=== PATIENT | female | born 1990 | race African-American/Black ===

== ENCOUNTER 2020-05-29 20:00 | Emergency (ER) | payer OTHER, SELFPAY ==
--- NOTE | ~2020-05-29 | US_ITS ---
EXAMINATION: US OB <=14 wk fetus w TV DATE: 05/30/2020 07:14 INDICATION: Abdominal pain during first trimester of . TECHNIQUE: Real-time pelvic ultrasound utilizing both a transvaginal and transabdominal probe was pe rformed. The interpreting radiologist was not present for the study. COMPARISON: None. FINDINGS: The uterus measures 10.1 x 5.1 x 6.1 cm. There is an intrauterine gestational sac. A yolk sac is see n but no clearly definable pole yet apparent. The in sac diameter measures 6-7 mm, which correl ates with an estimated gestational age of 5 weeks and 2 days. The right ovary measures 3.6 x 3.2 x 2.8 cm. The left ovary measures 3.8 x 1.6 x 1.6 cm. Vascular sophy w on color Doppler and a few small anechoic follicles are seen at both ovaries. There is no free flui d in the pelvis. IMPRESSION: 1. Single intrauterine gestational sac with yolk sac but no clearly definable pole yet apparent . 2. Gestational age by ultrasound of 5 weeks 2 day(s) +/- 3 day(s) with ultrasound estimated date of delivery ([facility]) of 01/27/2021. Reviewed, dictated and finalized at location A. IMPRESSION: 1. Single intrauterine gestational sac with yolk sac but no clearly definable f etal pole yet apparent. 2. Gestational age by ultrasound of 5 weeks 2 day(s) +/- 3 day(s) with ultraso und estimated date of delivery ([facility]) of 01/27/2021.
[2020-05-29 20:05] VITALS: BP 118/69; PULSE 95; RESP 18; TEMP 36.6; O2SAT 100
[2020-05-29 20:22] LABS: Basophils Percent Auto 0.2 % (0.2-1.2); Eosinophils Absolute Auto 0.1 K/mm3 (0-0.3); Eosinophils Percent Auto 0.7 % (0-4.4); Hematocrit 41.8 % (37.0-47.0); Immature Granulocyte Absolute 0.02 K/mm3 (0.00-0.031); Immature Granulocyte Percent A 0.2 % (0-0.5); Lymphocytes Absolute Auto 1.99 K/mm3 (0.9-3.2); Lymphocytes Percent Auto 24.6 % (18.3-44.2); Mean Corpuscular HGB Conc 33.5 g/dl (32-36); Mean Corpuscular Hemoglobin 28.9 pg (26-34); Mean Corpuscular Volume 86.2 fl (80-100); Mean Platelet Volume 11.2 fl (7.4-10.4); Monocytes Absolute Auto 0.6 K/mm3 (0.1-0.6); Monocytes Percent Auto 7.8 % (2.6-8.5); Neutrophils Absolute Auto 5.4 K/mm3 (1.3-6.7); Neutrophils Percent Auto 66.5 % (45.5-73.1); Platelet Count Result 229 k/mm3 (150-375); Red Blood Count 4.85 M/mm3 (4.2-5.4); Red Cell Distribution Width 11.9 % (11.5-14.5); White Blood Count 8.1 K/mm3 (4.5-10.0)
[2020-05-29 20:28] LABS: Add Urine Microscopic? YES; Appearance Urine Cloudy (Clear); Bacteria Urine Trace /hpf; Bilirubin Urine Negative (Negative); Blood Urine Negative (Negative); Color Urine Yellow (Yellow); Glucose Urine UA Negative (Negative); Ketones Urine Negative (Negative); Leukocyte Esterase Ur Trace LEU/UL (Negative); Mucus Urine Rare /lpf; Nitrate Urine Negative (Negative); Protein Urine Negative (Negative); Specific Grav Ur 1.019 (1.001-1.035); Squamous Epithelial Cell Urine Many /hpf (Few); WBC Urine 0-3 /hpf
[2020-05-29 20:29] VITALS: BP 125/86; PULSE 85; RESP 18; O2SAT 100
--- NOTE | 2020-05-29 20:33 | ED.ABDPAIN ---
HPI - Abdominal Pain General Chief Complaint: Abdominal Pain Stated Complaint: L abd pain and ear ache Time Seen by Provider: 05/29/20 20:22 Source: patient Mode of arrival: ambulatory Limitations: no limitations History of Present Illness HPI narrative: This is a 29 year old female with history of endometriosis who presents for evaluation of left lower abdominal pain. This pain has been intermittent for 3 days. She has not tried any medication for pain. She denies associated nausea, vomiting, fever, chills, dysuria or hematuria. Her last menstrual cycle was 04/24/20 and her urine test is positive in ER today. She also reports odorous vaginal discharge. She is also complaining of left ear pain. MD elicited complaint: abdominal pain Related Data Allergies Allergy/AdvReac Type Severity Reaction Status Date / Time No Known Allergies Allergy Verified 08/15/12 20:58 Review of Systems Review of Systems: All systems reviewed & are unremarkable except as noted in HPI and below Constitutional: Constitutional: Denies chills and Denies fever(s) Cardiovascular: Cardiovascular: Denies chest pain Respiratory: Respiratory: Denies cough Gastrointestinal: Gastrointestinal: Reports abdominal pain, Denies constipation, Denies diarrhea, Denies nausea and Denies vomiting Genitourinary: Genitourinary: Denies abnormal vaginal bleeding, Denies hematuria and Reports vaginal discharge [facility] Past Medical History Medical History (Updated 05/30/20 @ 00:15 by Dayana Thurston MD) Patient denies medical problems Surgical History Surgical History (Updated 05/30/20 @ 00:07 by Dayana Thurston MD) History of laparoscopy Social History Social History (Updated 05/30/20 @ 00:07 by Dayana hTurston MD) Smoking status: Never smoker Gender identity (if verbalized by the patient): Female Exam Const: General: no acute distress and alert Orientation/consciousness: patient oriented x3 HENMT: Head: normocephalic and atraumatic Ears: external ears normal and TM's normal bilaterally General nose exam: Normal external nose present and Normal nares present Face and sinus: face symmetric Mouth: Yes Normal oral and palatal mucosa present, Yes lip normal, Yes oropharynx normal and Yes moist mucous membranes Eyes: EOM: EOMs intact bilaterally Chest: Chest palpation & inspection: normal inspection of the chest Resp: Effort & Inspection: normal respiratory effort and no retractions Auscultation: clear to auscultation bilaterally Cardio: Rate: regular rate Rhythm: regular rhythm Heart sounds: no murmurs GI: GI Palp: Yes Soft to palpation, Yes Tenderness to palpation present (GI) (mild LLQ), No Guarding due to palpation present (GI) and No Rigid due to palpation Auscultation: normal bowel sounds : Speculum Exam - Vagina: abnormal vaginal discharge white Speculum Exam - Cervix: Cervical os closed Skin: General skin exam: normal color Rashes: no rashes Neuro: General: patient oriented x3 and moves all extremities Psych: Mental Status: mental status grossly normal Affect: normal affect Course Reevaluation(s) Reevaluation #1: I Discussed with patient that labs are unremarkable. I also discussed US showing GS but no pole yet. This may be early. She understands she will need to call OBGYN tomorrow to get follow up for repeat US. She will be started on antibiotics for BV Date: 05/30/20 Time: 00:08 Vital Signs Vital signs: Vital Signs Temperature 97.9 F 05/29/20 20:05 Pulse Rate 95 05/29/20 20:05 Respiratory Rate 18 05/29/20 20:05 Blood Pressure 118/69 05/29/20 20:05 Pulse Oximetry 100 05/29/20 20:05 Temperature 97.9 F 05/29/20 20:05 Pulse Rate 81 05/30/20 00:35 Respiratory Rate 20 05/30/20 00:35 Blood Pressure 103/71 05/30/20 00:35 Pulse Oximetry 98 05/30/20 00:35 MDM - Abdominal Pain Lab Data Attestation: I reviewed the patient's lab results
[2020-05-29 20:36] LABS: Alanine Aminotransferase 48 U/L (4-35); Albumin Level 3.6 g/dL (3.5-5.1); Alkaline Phosphatase 43 U/L (38-126); Anion Gap 4 mmol/L (8-16); Aspartate Amino Transferase 45 U/L (14-36); Bilirubin,Total 0.4 mg/dL (0.2-1.3); Blood Urea Nitrogen 8 mg/dL (7-17); Calcium 8.3 mg/dL (8.4-10.2); Carbon Dioxide 29 mmol/L (22-30); Chloride 106 mmol/L (98-107); Estimated CRCL calculation 81 ml/min; Estimated Glomerular Filt Rate > 60; Glucose 84 mg/dL (65-105); Lipase 76 U/L (23-300); Potassium 3.2 mmol/L (3.4-5.0); Sodium 139 mmol/L (137-145)
[2020-05-29 20:51] VITALS: BP 117/79; O2SAT 100
[2020-05-29 23:00] VITALS: BP 102/69; PULSE 77; RESP 20; O2SAT 99
--- NOTE | 2020-05-29 23:00 | PC.NURSE ---
Assume care of patient at this time. Report from Diana AN
[2020-05-30 00:35] VITALS: BP 103/71; PULSE 81; RESP 20; O2SAT 98
== END 2020-05-30 00:35 | disposition home or self-care (01) ==
PROVIDERS: Emergency Medicine; Emergency Provider General Practice
DX: O23.591 Infection of other part of genital tract in pregnancy, first trimester (principal); B96.89 Other specified bacterial agents as the cause of diseases classified elsewhere; O99.891 Other specified diseases and conditions complicating pregnancy; H92.02 Otalgia, left ear; N80.9 Endometriosis, unspecified; Z3A.01 Less than 8 weeks gestation of pregnancy
CPT/HCPCS: 36415; 76801; 76817; 80053; 81001; 81025; 83690; 84702; 85025; 85461; 87070; 87147; 87491; 87591; 87808; 96374; 99284; J0131